=== PATIENT | female | born 1965 | race African-American/Black ===

== ENCOUNTER 2017-02-14 07:50 | Emergency (ER) | payer MEDICAID, OTHER ==
[~2017-02-14] VITALS: Ht 162.6 cm; Wt 70.0 kg
[~2017-02-14 07:50] MED LIST: HYDR-1348 PO; PROIN3; [UNRECOGNIZED DRUG - CODE]
[2017-02-14] MEDS ORDERED: KETOROLAC 60MG/2ML VIAL IM ONE (10:00)
[2017-02-14 11:00] VITALS: BP 120/78
== END 2017-02-14 11:49 | disposition home or self-care (01) ==
LOC: ER 08:51
DX: S70.00XA Contusion of unspecified hip, initial encounter (principal); J45.909 Unspecified asthma, uncomplicated; F17.200 Nicotine dependence, unspecified, uncomplicated; V13.4XXA Pedal cycle driver injured in collision with car, pick-up truck or van in traffic accident, initial encounter; Y93.55 Activity, bike riding; Y99.8 Other external cause status; Y92.89 Other specified places as the place of occurrence of the external cause; Z98.890 Other specified postprocedural states
CPT/HCPCS: 73502; 96372; 99284; J1885

== ENCOUNTER 2019-02-23 13:49 | Emergency (ER) | payer MEDICAID ==
[~2019-02-23] VITALS: Ht 165.1 cm; Wt 77.0 kg
[2019-02-23] MEDS ORDERED: TRAMADOL HCL/ACETAMINOPHEN 37.5/325MG TABLET PO ONE (15:30)
[2019-02-23] MEDS ORDERED: BACITRACIN ZINC OINT UDPKT TOP ONE (17:00)
[2019-02-23 17:54] VITALS: BP 132/78
== END 2019-02-23 18:08 | disposition home or self-care (01) ==
LOC: ER 13:49
DX: S82.291A Other fracture of shaft of right tibia, initial encounter for closed fracture (principal); F12.10 Cannabis abuse, uncomplicated; X58.XXXA Exposure to other specified factors, initial encounter; Y93.89 Activity, other specified; Y92.89 Other specified places as the place of occurrence of the external cause; Y99.8 Other external cause status; Z98.890 Other specified postprocedural states
CPT/HCPCS: 29515; 93971; 99284

== ENCOUNTER 2019-02-27 02:53 | Emergency (ER) | payer MEDICAID ==
[~2019-02-27] VITALS: Ht 165.1 cm; Wt 68.0 kg
[2019-02-27 05:28] LABS: BASOPHILS % 0.6 % (0.0-2.0); EOSINOPHILS % 2.6 % (0.0-5.0); HEMATOCRIT. 30.6 % (36.0-48.0); HEMOGLOBIN. 9.7 g/dL (12.0-16.0); LYMPHOCYTES % 27.6 % (20.0-50.0); MEAN CORPUSCULAR VOLUME 88.2 fL (81.0-99.0); MEAN PLATELET VOLUME 8.3 fl (7.4-10.4); MONOCYTES % 10.9 % (2.0-8.0); NEUTROPHILS % 58.3 % (40.0-76.0); PLATELET 427 x1000/uL (130-400); RED BLOOD CELL COUNT 3.47 mill/uL (4.2-5.4); RED CELL DISTRIBUTION WIDTH 14.4 % (11.6-14.6)
[2019-02-27 05:30] LABS: CHLORIDE 106 mEq/L (98-107)
[2019-02-27 10:25] VITALS: BP 141/98
== END 2019-02-27 10:45 | disposition home or self-care (01) ==
LOC: ER 02:53
DX: S82.201A Unspecified fracture of shaft of right tibia, initial encounter for closed fracture (principal); S80.811A Abrasion, right lower leg, initial encounter; X58.XXXA Exposure to other specified factors, initial encounter; Y93.89 Activity, other specified; Y92.410 Unspecified street and highway as the place of occurrence of the external cause; R03.0 Elevated blood-pressure reading, without diagnosis of hypertension; F12.90 Cannabis use, unspecified, uncomplicated
CPT/HCPCS: 29515; 36415; 73590; 73610; 83605; 93971; 99284